=== PATIENT | female | born 1950 | race Caucasian/White ===

== ENCOUNTER 2018-04-03 06:26 | Day surgery (SDC) | payer OTHER | END 2018-04-03 12:00 | disposition home or self-care (01) | LOC: AMB-ENDOS 06:26 | DX: D12.2 Benign neoplasm of ascending colon (principal); I11.9 Hypertensive heart disease without heart failure; I25.10 Atherosclerotic heart disease of native coronary artery without angina pectoris; E78.4 Other hyperlipidemia; R73.01 Impaired fasting glucose; E04.8 Other specified nontoxic goiter ==

== ENCOUNTER 2018-10-16 08:53 | Day surgery (SDC) | payer OTHER | END 2018-10-16 10:29 | disposition home or self-care (01) | LOC: AMB-ENDOS 08:53 | DX: K29.50 Unspecified chronic gastritis without bleeding (principal) ==

== ENCOUNTER 2021-07-13 06:54 | Day surgery (SDC) | payer OTHER | END 2021-07-13 13:20 | disposition home or self-care (01) | LOC: AMB-ENDOS 06:54 | PROVIDERS: ATTEND Colon & Rectal Surgery | DX: D13.1 Benign neoplasm of stomach (principal); D12.3 Benign neoplasm of transverse colon; D12.4 Benign neoplasm of descending colon; K64.1 Second degree hemorrhoids; Z20.822 Contact with and (suspected) exposure to COVID-19 ==